=== PATIENT | female | born 1995 | race Caucasian/White ===

== ENCOUNTER 2018-03-14 12:09 | Emergency (ER) | payer OTHER ==
[~2018-03-14] VITALS: Ht 160 cm; Wt 113.6 kg
[2018-03-14 12:13] VITALS: TEMP 98.2
[2018-03-14] MEDS ORDERED: PROZAC 10MG10 MG PO (12:24)
[2018-03-14 13:51] VITALS: BP 133/76
[2018-03-14 15:43] VITALS: PULSE 64
== END 2018-03-14 15:43 | disposition home or self-care (01) ==
LOC: COL.ER 12:09
DX: G43.909 Migraine, unspecified, not intractable, without status migrainosus (principal); F41.9 Anxiety disorder, unspecified; Z90.49 Acquired absence of other specified parts of digestive tract; Z88.0 Allergy status to penicillin
CPT/HCPCS: J1200; J1885; J2550; J7030